=== PATIENT | male | born 1990 | race Two or more races ===

== ENCOUNTER 2022-03-13 11:49 | Emergency (ER) | payer MEDICAID, OTHER ==
[~2022-03-13] VITALS: Ht 167.6 cm; Wt 79.8 kg
[2022-03-13] MEDS ORDERED: OXYCODONE W/ ACETAMINOPHEN 5/325MG TABLET PO ONE (14:00)
[2022-03-13 14:09] LABS: Urine Bacteria FEW /hpf (None Seen); Urine Blood 3+ /uL (Negative); Urine Mucus FEW (None Seen); Urine WBC 8 /hpf (0 - 3)
[2022-03-13] MEDS ORDERED: TAMSULOSIN HYDROCHLORIDE 0.4 MG CAP PO ONE (16:15)
[2022-03-13] MEDS ORDERED: ONDANSETRON HCL 4 MG/2 ML VIAL IV ONE (16:15)
[2022-03-13] MEDS ORDERED: SODIUM CHLORIDE 0.9% 1,000 ML IV ONE (16:15)
[2022-03-13] MEDS ORDERED: HYDROmorphone HCL 2 MG/ML VL IV ONE (16:15)
[2022-03-13] MEDS ORDERED: PERCOT PO (16:39)
[2022-03-13] MEDS ORDERED: NITR-87 PO (16:39)
[2022-03-13] MEDS ORDERED: ONDA-144 PO (16:39)
[2022-03-13] MEDS ORDERED: TAM04C PO (16:39)
[2022-03-13 17:26] VITALS: BP 123/69
== END 2022-03-13 17:56 | disposition home or self-care (01) ==
LOC: ER 11:49
DX: N20.9 Urinary calculus, unspecified (principal); I25.2 Old myocardial infarction
CPT/HCPCS: 74176; 81001; 96374; 96375; 99285; J1170; J2405; J7030

== ENCOUNTER 2022-05-16 14:38 | Emergency (ER) | payer MEDICAID ==
[~2022-05-16] VITALS: Ht 167.6 cm; Wt 78.5 kg
[~2022-05-16 14:38] MED LIST: NITR-87 PO; ONDA-144 PO; PERCOT PO; TAM04C PO
[2022-05-16 17:25] LABS: Basophils # (auto) 0 10 ^3/uL (0-0.2); Basophils % (auto) 0.2 % (0.0-2.0); Eosinophils # (auto) 0 10 ^3/uL (0-0.8); Eosinophils % (auto) 0.2 % (0.0-7.0); Hematocrit 44.3 % (41.0-53.0); Hemoglobin 14.3 g/dL (13.5-17.5); Lymphocytes % (auto) 6.4 % (10.0-50.0); Mean Corpuscular Hemoglobin 27.4 pg (28.0-32.0); Mean Corpuscular Hgb Conc. 32.4 g/dL (32.0-36.0); Mean Corpuscular Volume 84.7 fL (80.0-100.0); Monocytes # (auto) 0.7 10 ^3/uL (0-1.3); Monocytes % (auto) 4.5 % (0.0-12.0); Neutrophils # (auto) 14.4 10 ^3/uL (1.6-8.6); Neutrophils % (auto) 88.7 % (37.0-80.0); Red Blood Cells 5.23 10^6/uL (4.5-5.90); Red Cell Distribution Width 12.7 % (11.8-14.3); White Blood Cell 16.3 10^3/uL (4.4-10.8)
[2022-05-16 17:32] LABS: Albumin 3.9 g/dL (3.4-5.0); Calcium 8.8 mg/dL (8.5-10.1)
[2022-05-16 17:34] LABS: Bilirubin, Total 0.2 mg/dL (0.2-1.0)
[2022-05-16] MEDS ORDERED: KETOROLAC TROMETH 30 MG/ML 1ML VIAL IV ONE (18:45)
[2022-05-16 19:00] VITALS: BP 128/81
[2022-05-16 19:46] LABS: Lactic Acid w/Reflex 3.2 mmol/L (0.4-2.0)
[2022-05-16] MEDS ORDERED: SODIUM CHLORIDE 0.9% 2,000 ML IV ONE (20:30)
[2022-05-16] MEDS ORDERED: TAMSULOSIN HYDROCHLORIDE 0.4 MG CAP PO ONE (20:30)
[2022-05-16 22:41] LABS: Urine Bacteria NONE SEEN /hpf (None Seen); Urine Blood 3+ /uL (Negative); Urine Mucus FEW (None Seen); Urine WBC 15 /hpf (0 - 3)
[2022-05-16] MEDS ORDERED: TRAM-297 PO (22:51)
[2022-05-16] MEDS ORDERED: TAM04C PO (22:51)
== END 2022-05-16 23:30 | disposition home or self-care (01) ==
LOC: ER 14:38
DX: N20.0 Calculus of kidney (principal); F12.10 Cannabis abuse, uncomplicated
CPT/HCPCS: 36415; 74176; 80053; 81001; 83605; 83690; 85025; 96361; 96374; 99284; J1885; J7030

== ENCOUNTER 2023-04-24 19:16 | Emergency (ER) | payer MEDICAID ==
[~2023-04-24] VITALS: Ht 165.1 cm; Wt 95.5 kg
[~2023-04-24 19:16] MED LIST changes: -TAM04C PO; +TAMS-35 PO
[2023-04-24 22:05] LABS: Basophils # (auto) 0.1 10 ^3/uL (0-0.2); Basophils % (auto) 0.6 % (0.0-2.0); Eosinophils # (auto) 1.2 10 ^3/uL (0-0.8); Eosinophils % (auto) 12.8 % (0.0-7.0); Hematocrit 43.6 % (41.0-53.0); Hemoglobin 14.9 g/dL (13.5-17.5); Lymphocytes % (auto) 20.5 % (10.0-50.0); Mean Corpuscular Hemoglobin 28.8 pg (28.0-32.0); Mean Corpuscular Hgb Conc. 34.3 g/dL (32.0-36.0); Mean Corpuscular Volume 84.1 fL (80.0-100.0); Monocytes # (auto) 0.6 10 ^3/uL (0-1.3); Monocytes % (auto) 6.5 % (0.0-12.0); Neutrophils # (auto) 5.7 10 ^3/uL (1.6-8.6); Neutrophils % (auto) 59.6 % (37.0-80.0); Nucleated Red Blood Cells % 0.2 %; Red Blood Cells 5.18 10^6/uL (4.5-5.90); Red Cell Distribution Width 12.9 % (11.8-14.3); White Blood Cell 9.6 10^3/uL (4.4-10.8)
[2023-04-24 22:17] LABS: Albumin 3.8 g/dL (3.4-5.0); Calcium 8.4 mg/dL (8.5-10.1); Potassium 3.9 mmol/L (3.5-5.1)
[2023-04-24 22:21] LABS: BUN/Creatinine Ratio 17.9 (10.0-20.0); Bilirubin, Total 0.2 mg/dL (0.2-1.0); Total Protein 7.7 g/dL (6.4-8.2)
[2023-04-25 00:14] LABS: Urine Bacteria NONE SEEN /hpf (None Seen); Urine Blood Negative /uL (Negative); Urine Mucus FEW (None Seen); Urine Specific Gravity 1.025 (1.001-1.035); Urine WBC 1 /hpf (0 - 3)
[2023-04-25] MEDS ORDERED: AZIT-43 PO (03:18)
[2023-04-25 03:30] VITALS: BP 130/86
== END 2023-04-25 03:32 ==
LOC: ER 19:18
DX: J20.9 Acute bronchitis, unspecified (principal); I25.2 Old myocardial infarction; I49.9 Cardiac arrhythmia, unspecified
CPT/HCPCS: 36415; 71045; 80053; 81001; 83880; 84484; 85025; 93005